=== PATIENT | male | born 1950 | race Caucasian/White ===

== ENCOUNTER 2022-08-08 16:49 | Emergency (ER) | payer MEDICARE, OTHER, SELFPAY ==
[2022-08-08 17:20] VITALS: BP 140/90; PULSE 78; RESP 16; TEMP 36.9; O2SAT 97
--- NOTE | 2022-08-08 17:36 | ED.URI ---
HPI - URI/Sore Throat General Chief Complaint: Upper Respiratory Infection Stated Complaint: Sore Throat, Cough Time Seen by Provider: 08/08/22 17:38 Source: patient, RN notes reviewed and old records reviewed Mode of arrival: ambulatory Limitations: no limitations History of Present Illness HPI Narrative: 71-year-old male presents to the [facility] with complaints of a sore throat and cough for 2-3 days. Has taken [id number] products Tylenol for his fever. Has not had the flu shot Related Data Home Medications Medication Instructions Recorded Confirmed atorvastatin 20 mg tablet 20 mg PO DAILY 08/08/22 08/08/22 buspirone 10 mg tablet 10 mg PO DAILY 08/08/22 08/08/22 carvedilol 25 mg tablet 25 mg PO DAILY 08/08/22 08/08/22 niacin 500 mg tablet,extended 500 mg PO DAILY 08/08/22 08/08/22 release 24 hr pantoprazole 40 mg tablet,delayed 40 mg PO DAILY 08/08/22 08/08/22 release rivaroxaban 20 mg tablet (Xarelto) 20 mg PO DAILY 08/08/22 08/08/22 tadalafil 5 mg tablet 5 mg PO DAILY 08/08/22 08/08/22 telmisartan 40 1 tablet PO DAILY 08/08/22 08/08/22 mg-hydrochlorothiazide 12.5 mg tablet trazodone 50 mg tablet 50 mg PO DAILY 08/08/22 08/08/22 ursodiol 300 mg capsule 300 mg PO DAILY 08/08/22 08/08/22 Allergies Allergy/AdvReac Type Severity Reaction Status Date / Time No Known Allergies Allergy Verified 08/08/22 17:44 Review of Systems Review of Systems: All systems reviewed & are unremarkable except as noted in HPI and below Constitutional: Constitutional: Reports as per HPI, Denies chills and Reports fever(s) Eyes: Eyes: Reports no additional eye complaints ENT: Reports as per HPI and Reports sore throat Cardiovascular: Cardiovascular: Reports no additional cardiovascular complaints Respiratory: Respiratory: Reports as per HPI and Reports cough Gastrointestinal: Gastrointestinal: Reports no additional gastrointestinal complaints Musculoskeletal: Musculoskeletal: Reports no additional musculoskeletal complaints Integumentary/Breasts: Skin/Breast: Reports system reviewed and no additional complaints, except as docu Neurologic: Reports system reviewed and no additional complaints, except as documented Psychiatric: Psychiatric: Reports no additional psychiatric complaints Allergic/Immunologic: Allergic/Immunologic: Reports no additional allergic/immunologic complaints [facility] Past Medical History Medical History (Updated 08/08/22 @ 17:50 by Teresa Dejesus APRN) High cholesterol History of high blood pressure Social History Social History (Updated 08/08/22 @ 17:48 by Teresa Dejesus APRN) Living arrangements: with family Gender identity (if verbalized by the patient): Female Comments At the time of my signature, I reviewed and agree with the nursing past medical, surgical, social, and family history. There is no relevant family history pertinent to the patient complaint. Exam Const: General: healthy appearing, comfortable, no acute distress, well developed, alert and well nourished Nutritional Appearance: well nourished Orientation/consciousness: patient oriented x3 Limitations: no limitations HENMT: Head: normal to inspection Ears: external ears normal and TM's normal bilaterally Face/Nose/Sinus: Normal external nose present and Normal nares present Face and sinus: normal facial exam and sinuses nontender Mouth: Yes Normal oral and palatal mucosa present, Yes lip normal and Yes moist mucous membranes Throat: posterior oropharynx normal and uvula midline Eyes: General: appearance normal, both eyes and all related structures Conjunctivae: conjunctivae normal Pupils: Equal, round and reactive pupils present Neck: Neck: normal visual inspection, full ROM, no lymphadenopathy and no meningeal signs Chest: Chest palpation & inspection: normal inspection of the chest Resp: Effort & Inspection: normal respiratory effort and no use of accessory muscles Auscultation: clear to auscul
== END 2022-08-08 18:00 | disposition home or self-care (01) ==
PROVIDERS: Emergency Provider Nurse Practitioner
DX: J10.1 Influenza due to other identified influenza virus with other respiratory manifestations (principal); E78.00 Pure hypercholesterolemia, unspecified; I10 Essential (primary) hypertension
CPT/HCPCS: 87804; 99213; G0463

== ENCOUNTER 2022-09-13 18:06 | Emergency (ER) | payer MEDICARE, OTHER, SELFPAY ==
[2022-09-13 18:44] VITALS: BP 153/86; PULSE 90; RESP 16; TEMP 38.6; O2SAT 97
--- NOTE | 2022-09-13 19:35 | ED.URI ---
HPI - URI/Sore Throat General Chief Complaint: Upper Respiratory Infection Stated Complaint: uri Time Seen by Provider: 09/13/22 19:31 Source: patient and RN notes reviewed Mode of arrival: ambulatory Limitations: no limitations History of Present Illness HPI Narrative: 71-year-old male presented for complaint of nasal congestion, cough, and chills today. He denies shortness of breath, wheezing, nausea, vomiting, diarrhea today. He has not taken anything for symptoms. He denies sick contacts. Patient tested positive for influenza A on 08/08/22. Since then he has had sinus congestion. MD elicited complaint: cough Related Data Home Medications Medication Instructions Recorded Confirmed atorvastatin 20 mg tablet 40 mg PO DAILY 08/08/22 09/13/22 carvedilol 25 mg tablet 25 mg PO DAILY 08/08/22 09/13/22 niacin 500 mg tablet,extended 500 mg PO DAILY 08/08/22 09/13/22 release 24 hr pantoprazole 40 mg tablet,delayed 40 mg PO DAILY 08/08/22 09/13/22 release rivaroxaban 20 mg tablet (Xarelto) 20 mg PO DAILY 08/08/22 09/13/22 tadalafil 5 mg tablet 5 mg PO DAILY 08/08/22 08/08/22 trazodone 50 mg tablet 50 mg PO DAILY 08/08/22 09/13/22 ursodiol 300 mg capsule 300 mg PO BID 08/08/22 09/13/22 buspirone 10 mg tablet 10 mg DAILY 09/13/22 09/13/22 cholecalciferol (vitamin D3) 50 50 mcg PO DAILY 09/13/22 09/13/22 mcg (2,000 unit) tablet (Vitamin D3) melatonin 5 mg tablet 5 mg PO HS 09/13/22 09/13/22 multivitamin with minerals-folic 1 tablet PO DAILY 09/13/22 09/13/22 acid 0.4 mg tablet tadalafil 5 mg tablet (Cialis) 5 mg PO DAILY 09/13/22 09/13/22 telmisartan 40 mg tablet (Micardis) 40 mg PO DAILY 09/13/22 09/13/22 vitamin E 400 unit tablet 400 unit PO DAILY 09/13/22 09/13/22 Allergies Allergy/AdvReac Type Severity Reaction Status Date / Time No Known Allergies Allergy Verified 09/13/22 18:47 Review of Systems Review of Systems: per HPI [facility] Past Medical History Medical History High cholesterol History of high blood pressure Social History Social History Gender identity (if verbalized by the patient): Female Exam Narrative: GENERAL: Ill-appearing, nontoxic EYES: PERRLA, conjunctivae clear ENT: Mucous membranes moist. TMs pearly ochoa with dull light reflex bilaterally; no tragal tenderness. Oropharynx without lesions or exudate, no drooling, no hoarseness, no trismus, uvula midline. CHEST: Clear to auscultation, breath sounds equal. HEART: Regular rate and rhythm. No murmur heard. SKIN: Warm, dry, no rash. NEURO: Alert and oriented x3. PSYCH: Normal mood and affect Course Course Emergency Course: Patient is aware of diagnosis, understands and agrees to treatment plan. Anticipatory guidance given. Patient agrees to follow-up as directed and is aware of reasons to seek care at the emergency department. Portions of this record may have been created with voice recognition software Level of Care: Express Care Visit Vital Signs Vital signs: Vital Signs Temperature 101.4 F H 09/13/22 18:44 Pulse Rate 90 09/13/22 18:44 Respiratory Rate 16 09/13/22 18:44 Blood Pressure 153/86 H 09/13/22 18:44 Pulse Oximetry 97 09/13/22 18:44 Oxygen Delivery Room Air 09/13/22 18:44 Temperature 101.4 F H 09/13/22 18:44 Pulse Rate 90 09/13/22 18:44 Respiratory Rate 16 09/13/22 18:44 Blood Pressure 153/86 H 09/13/22 18:44 Pulse Oximetry 97 09/13/22 18:44 Oxygen Delivery Room Air 09/13/22 18:44 reviewed MDM - URI/Sore Throat MDM Narrative Medical decision making narrative: COVID positive results reviewed with patient Advised supportive measures and signs/symptoms to go to the ER. Pt is appropriate for outpt treatment and f/u. Differential Diagnosis Differential diagnosis: Likely upper respiratory infection, sinusitis and viral infection Lab Data Labs: Lab Re
== END 2022-09-13 19:50 | disposition home or self-care (01) ==
PROVIDERS: Emergency Provider Nurse Practitioner Family
DX: U07.1 COVID-19 (principal); E78.00 Pure hypercholesterolemia, unspecified; I10 Essential (primary) hypertension
CPT/HCPCS: 87426; 87804; 99213; C9803; G0463